=== PATIENT | male | born 1960 | race Caucasian/White ===

== ENCOUNTER 2022-12-16 05:32 | Day surgery (SDC) | payer OTHER ==
[2022-12-10 14:25] LABS: BASOPHILS % (AUTO) 0.5 % (0-1); EOSINOPHILS # (AUTO) 0.1 X10'3 (0-0.9); EOSINOPHILS % (AUTO) 0.7 % (0-6); LYMPHOCYTES # (AUTO) 1.9 X10'3 (1.1-4.8); LYMPHOCYTES % (AUTO) 23.2 % (21-51); MEAN CORPUSCULAR HEMOGLOBIN 29.9 PG (27.0-31.0); MEAN CORPUSCULAR VOLUME 90.7 FL (78-98); MEAN PLATELET VOLUME 7.4 FL (7.4-10.4); MONOCYTES # (AUTO) 0.5 X10'3 (0-0.9); MONOCYTES % (AUTO) 5.9 % (2-12); NEUTROPHILS # (AUTO) 5.7 X10'3 (1.8-7.7); NEUTROPHILS % (AUTO) 69.7 % (42-75); PRE OP HEMATOCRIT 43.8 % (42.0-52.0); PRE OP HEMOGLOBIN 14.5 g/dL (14.0-17.9); PRE OP PLATELET COUNT 312 X10'3 (140-440); PRE OP WHITE BLOOD COUNT 8.1 10'3 (4.8-10.8); RED BLOOD COUNT 4.83 X10'6 (4.70-6.10); RED CELL DISTRIBUTION WIDTH 13.5 % (11.5-14.5)
[2022-12-10 14:34] LABS: ALBUMIN 3.9 G/DL (3.4-5.0); ALBUMIN/GLOBULIN RATIO 1.1 (1.1-1.5); ALKALINE PHOSPHATASE 117 IU/L (46-116); BLOOD UREA NITROGEN 13 MG/DL (7-18); BUN/CREATININE RATIO 12.4 (10.0-20.0); CALCIUM 9.3 MG/DL (8.5-10.1); CHLORIDE 105 MMOL/L (99-107); CREATININE 1.05 MG/DL (0.60-1.10); PRE OP ALT 34 U/L (30-65); PRE OP ANION GAP 8 (8-16); PRE OP AST 16 U/L (10-37); PRE OP BILIRUB, TOTAL 0.5 MG/DL (0.0-1.0); PRE OP GLUCOSE 109 MG/DL (70-104); PRE OP POTASSIUM 3.9 MMOL/L (3.4-5.1); PRE OP SODIUM 142 MMOL/L (135-145); TOTAL CARBON DIOXIDE 28.8 MMOL/L (24-32); TOTAL PROTEIN 7.5 G/DL (6.4-8.2); eGFR 72 ML/MIN
[2022-12-16] VITALS (30 sets, daily range): BP systolic 124–162; BP diastolic 84–106; PULSE 65–87; RESP 11–21; TEMP 98.1–98.2; O2SAT 93–100
[~2022-12-16] VITALS: Ht 180.3 cm; Wt 89.6 kg
[~2022-12-16 05:32] MED LIST: ACET-890 PO; CYCL-1 PO; IBUP-1985 PO; cefazolin 2gm/D5W 100mL 100 ML IV ONE; famotidine 20mg tablet PO ONE; ringers solution, lacted 1,000 ML IV SCH; tranexamic acid 650mg tablet PO ONE; vancomycin 1,500 MG in NS 300ml IV soln IV ONE
--- NOTE | 2022-12-16 06:30 | NUR ---
PT STATES HE BATHED AND USED BACTROBAN OINTMENT PER TOTAL JOINT REPLACEMENT RECOMMENDATIONS FOR THE LAST 5 DAYS, STATES HE READ THE BOOKLET ON [facility] INFORMATION. PT DENIES DECREASED SENSATION TO RIGHT ARM, RADIAL PULSE PALPABLE. Addendum: 12/16/22 at 0837 by Estephania Epstein RN Amended: Links added.
[2022-12-16] MEDS ORDERED: ketorolac trometh. 30mg/ml inj. ONE (06:45)
[2022-12-16] MEDS ORDERED: ROPIVAcaine 0.5% (5mg/ml) 30ml vial ONE ×2 (06:46→08:16)
[2022-12-16] MEDS ORDERED: sevoflurane 250ml liquid IH ONE (07:11)
[2022-12-16] MEDS ORDERED: midazolam 1 mg/ML 2ml injection ONE (07:13)
[2022-12-16] MEDS ORDERED: fentaNYL/PF 50MCG/1 ML 2ML syringe ONE ×2 (07:13→08:32)
[2022-12-16] MEDS ORDERED: ROPIVAcaine 0.2%/PF PUMP/bolus 545 ML INTERSCALE SCH (08:00)
[2022-12-16] MEDS ORDERED: morphine 2 MG/ML inj. syringe IV PRN (08:00)
[2022-12-16] MEDS ORDERED: ringers solution, lacted 1,000 ML IV SCH (08:00)
[2022-12-16] MEDS ORDERED: ROPIVAcaine 0.2% (10 MG/5 ML) BOLUS INJECTION INTERSCALE PRN (08:00)
[2022-12-16] MEDS ORDERED: ondansetron/PF 4mg/2ml inj IV PRN ×2 (08:00→09:25)
[2022-12-16] MEDS ORDERED: proCHLORperazine 10 MG/2 ml inj IV PRN (08:00)
[2022-12-16] MEDS ORDERED: meperidine/PF 25mg/ml syringe IV PRN ×3 (08:00)
[2022-12-16] MEDS ORDERED: morphine 4 MG/ML inj SYRINge IV PRN (08:00)
[2022-12-16] MEDS ORDERED: dexamethasone sod phosphate 4mg/ml inj. ONE (08:14)
[2022-12-16] MEDS ORDERED: propofol inj 20 ML IV ONE (08:14)
[2022-12-16] MEDS ORDERED: ondansetron/PF 4mg/2ml inj ONE (08:14)
[2022-12-16] MEDS ORDERED: acetaminophen 1,000mg/100ml IV 100 ML IV ONE (08:50)
--- NOTE | 2022-12-16 08:59 | NUR ---
Received from OR via HOSPITAL BED TO RR 5 , accompanied by Anesthesiologist DR SIERRA and report given by Anesthesiolgist. PATIENT PRESENT ON 6L VIA MASK WITH SPO2 AT 100%. PT IS NO C/O PAIN OR NAUSEA. NO S/S OF DISTRESS. HE STATES HE FEELS "WEIRD" WITH DR SIERRA IN THE ROOM HE STATES PATIENT IS COMING OUT OF ANESTHESIA. RIGHT SHOULDER DRESSING CDI COVERED WITH WRAP AND SHOULDER SLING. ICE PACK APPLIED. PT IS ONQ READY, PENDS ONQ FROM PHARMACY. PALPABLE RADIAL PULSES BILATERALLY, SCD'S ARE ON. WILL CONTINUE TO ASSESS.
[2022-12-16] MEDS ORDERED: naloxone 0.4 mg/ml inj IV PRN (09:25)
[2022-12-16] MEDS ORDERED: oxyCODONE IR 5mg (immed. release) tablet PO PRN ×2 (09:25)
[2022-12-16] MEDS ORDERED: bisacodyl 10mg suppository rectal RC PRN (09:25)
[2022-12-16] MEDS ORDERED: HYDROcodone/acetaminophen 10/325mg tab PO PRN ×2 (09:25)
[2022-12-16] MEDS ORDERED: diphenhydrAMINE 25mg capsule PO PRN ×2 (09:25)
[2022-12-16] MEDS ORDERED: magnesium hydroxide 30ml (MOM) UD suspension PO PRN (09:25)
[2022-12-16] MEDS ORDERED: potassium cl 20mEq in 1/2 NS 1,000 ML IV SCH ×2 (09:25→11:00)
[2022-12-16] MEDS ORDERED: non-formulary drug (Acetaminophen (Tylenol) 1 TAB) PO PRN (09:25)
[2022-12-16] MEDS ORDERED: acetaminophen 325mg tablet PO PRN (09:25)
[2022-12-16] MEDS ORDERED: cyclobenzaprine 10mg tablet PO PRN (09:25)
[2022-12-16] MEDS ORDERED: non-formulary drug (Ibuprofen 1 TAB) PO PRN (09:25)
[2022-12-16] MEDS ORDERED: HYDROmorphone inj. 0.5 MG/0.5 ML DISP.SYRIN IV PRN (09:25)
[2022-12-16] MEDS ORDERED: HYDROmorphone 1 mg/ml syringe IV PRN (09:25)
--- NOTE | 2022-12-16 11:59 | NUR ---
PT TRANSFERRED TO ROOM 4010A PER MD ORDERS. REPORT GIVEN TO ADAM, ALL QUESTIONS, COMMENTS, AND CONCERNS WERE ANSWERED AT THIS TIME. VSS, NO C/O PAIN OR NAUSEA. RIGHT SHOULDER DRESSING CDI. ASSISTED PATIENT TO THE BATHROOM IN ROOM 4010. TECH AND PRIMARY NURSE AWARE OF PATIENT TRANSFERRED AND THEY WILL HOOK HIM UP TO POST OP VS WELL GIVE HIM CALL LIGHT. BLL, PERSONAL BELONGINGS WITH PATIENT.
--- NOTE | 2022-12-16 12:15 | NUR ---
CALLED , MARILU TO ADVISE OF ROOM #.
[2022-12-16] MEDS ORDERED: acetaminophen 325mg tablet PO SCH (14:00)
[2022-12-16] MEDS ORDERED: ceFAZolin/D5W- 1GM premix 50 ML IV SCH (16:00)
--- NOTE | 2022-12-16 17:04 | NUR ---
patient discharged, IV discontinued, canula in tact. All belongings and education completed with at bedside. Verbal acknowledgement completed verbally. Patient knows to call unit with any questions. Ice pack given to patient along with eduction. OnQ completed with handout.
[2022-12-16] MEDS ORDERED: vancomycin/NS 1 GM ADD-VANTAGE 250 ML IV SCH (20:00)
[2022-12-16] MEDS ORDERED: sennosides 8.6mg tablet PO SCH (21:00)
[2022-12-17] MEDS ORDERED: aspirin 325mg tablet PO SCH (08:30)
[2022-12-18] MEDS ORDERED: acetaminophen 325mg tablet PO PRN (09:25)
== END 2022-12-16 17:01 | disposition home or self-care (01) ==
LOC: PAS 05:32 → EDSTATUS 08:45 → ORTHO 4S 09:40 → PAS 17:01
PROVIDERS: ATTEND Orthopaedic Surgery
DX: M19.111 Post-traumatic osteoarthritis, right shoulder (principal); M75.41 Impingement syndrome of right shoulder; M75.21 Bicipital tendinitis, right shoulder; G89.18 Other acute postprocedural pain; F17.220 Nicotine dependence, chewing tobacco, uncomplicated; Z72.89 Other problems related to lifestyle; Z98.890 Other specified postprocedural states; Z79.899 Other long term (current) drug therapy
CPT/HCPCS: 23472; 36415; 64416; 80053; 82948; 85025; 87081; C1713; C1776; J0131; J0690; J1100; J1885; J2250; J2405; J2704; J2795; J3010; J3370; J3490; J7030; J7120; Z7506; Z7508; Z7512; A4565; A4618; A7000; G0378